=== PATIENT | male | born 1960 | race Caucasian/White ===

== ENCOUNTER 2017-05-20 02:52 | Emergency (ER) | payer MEDICAID ==
[~2017-05-20] VITALS: Ht 170.2 cm; Wt 93.0 kg
[2017-05-20 03:56] LABS: Basophils # (auto) 0.1 uL; Basophils % (auto) 1.1 % (0.0-2.0); Eosinophils # (auto) 0.3 uL; Eosinophils % (auto) 3.5 % (0.0-7.0); Hematocrit 42.9 % (41.0-53.0); Hemoglobin 14.4 g/dL (13.5-17.5); Lymphocytes # (auto) 2.6 uL; Lymphocytes % (auto) 35.1 % (10.0-50.0); Mean Corpuscular Hemoglobin 30.6 pg (28.0-32.0); Mean Corpuscular Hgb Conc. 33.6 g/dL (32.0-36.0); Mean Corpuscular Volume 91.1 fL (80.0-100.0); Monocytes # (auto) 0.6 uL; Monocytes % (auto) 8.5 % (0.0-12.0); Neutrophils # (auto) 3.8 uL; Neutrophils % (auto) 51.8 % (37.0-80.0); Nucleated Red Blood Cells % 0.1 %; Platelet Count (auto) 285 10^3/uL (140-450); Red Blood Cells 4.71 10^6/uL (4.5-5.90); Red Cell Distribution Width 14.2 % (11.8-14.3); White Blood Cell 7.4 10^3/uL (4.4-10.8)
[2017-05-20 04:15] LABS: Alanine Aminotransferase 29 U/L (16-61); Albumin 3.9 g/dL (3.4-5.0); Anion Gap 7 (5-15); Aspartate Aminotransferase 13 U/L (15-37); BUN/Creatinine Ratio 18.5; Blood Urea Nitrogen 15 mg/dL (7-18); Calcium 8.8 mg/dL (8.5-10.1); Carbon Dioxide 25 mmol/L (21-32); Chloride 107 mmol/L (98-107); GFR African American 126 mL/min; GFR Non-African American 104 mL/min; Glucose 126 mg/dL (74-106); Magnesium 2.1 mg/dL (1.6-2.6); Potassium 4.2 mmol/L (3.5-5.1); Sodium 139 mmol/L (136-145)
[2017-05-20 04:20] LABS: Alkaline Phosphatase 75 U/L (45-117); Bilirubin, Total 0.3 mg/dL (0.2-1.0)
[2017-05-20] MEDS ORDERED: ALBUTEROL SULF 2.5 MG/0.5ML(0.5%) NEB SOLN NEB ONE (10:15)
[2017-05-20] MEDS ORDERED: IPRATROPIUM BROM 0.5 MG/2.5ML INH SOL NEB ONE (10:15)
[2017-05-20] MEDS ORDERED: PROMETHAZINE HCL 25 MG/ML 1ML IV ONE (13:00)
[2017-05-20] MEDS ORDERED: KETOROLAC TROMETH 30 MG/ML 1ML VIAL IV ONE (13:00)
[2017-05-20 13:43] VITALS: BP 129/87
== END 2017-05-20 13:39 | disposition home or self-care (01) ==
LOC: ER 02:54
DX: M19.012 Primary osteoarthritis, left shoulder (principal); M19.011 Primary osteoarthritis, right shoulder; G47.00 Insomnia, unspecified; E11.9 Type 2 diabetes mellitus without complications; E78.5 Hyperlipidemia, unspecified; I10 Essential (primary) hypertension; E07.89 Other specified disorders of thyroid; F17.290 Nicotine dependence, other tobacco product, uncomplicated
CPT/HCPCS: 36415; 71045; 80053; 82962; 83735; 83880; 84443; 84484; 85025; 85379; 93005; 94640; 96374; 96375; 99285; J1885; J2550

== ENCOUNTER 2017-06-21 10:26 | Emergency (ER) | payer MEDICAID ==
[~2017-06-21] VITALS: Ht 170.2 cm; Wt 93.4 kg
[2017-06-21 10:37] VITALS: BP 146/82
[2017-06-21] MEDS ORDERED: KETOROLAC TROMETH 60MG/2ML VIAL IM ONE (12:00)
== END 2017-06-21 13:30 | disposition home or self-care (01) ==
LOC: ER 10:26
DX: M54.2 Cervicalgia (principal); M54.5 Low back pain; G89.29 Other chronic pain; M62.830 Muscle spasm of back; E78.5 Hyperlipidemia, unspecified; E11.9 Type 2 diabetes mellitus without complications; I10 Essential (primary) hypertension; F17.200 Nicotine dependence, unspecified, uncomplicated; Z88.0 Allergy status to penicillin
CPT/HCPCS: 93005; 96372; 99283; J1885

== ENCOUNTER 2017-08-06 15:16 | Emergency (ER) | payer MEDICAID ==
[~2017-08-06] VITALS: Ht 170.2 cm; Wt 90.7 kg
[2017-08-06] MEDS ORDERED: SODIUM CHLORIDE 0.9% 1,000 ML IV ONE (17:59)
[2017-08-06] MEDS ORDERED: HYDROmorphone HCL 2 MG/ML VL IV ONE (18:00)
[2017-08-06] MEDS ORDERED: METOCLOPRAMIDE HCL 5MG/ml INJ 2ml VIAL IV ONE (18:00)
[2017-08-06 19:46] LABS: Basophils # (auto) 0 uL; Basophils % (auto) 0.4 % (0.0-2.0); Eosinophils # (auto) 0 uL; Eosinophils % (auto) 0.2 % (0.0-7.0); Hematocrit 42.4 % (41.0-53.0); Hemoglobin 14.1 g/dL (13.5-17.5); Lymphocytes # (auto) 1.4 uL; Lymphocytes % (auto) 12.9 % (10.0-50.0); Mean Corpuscular Hemoglobin 30.2 pg (28.0-32.0); Mean Corpuscular Hgb Conc. 33.2 g/dL (32.0-36.0); Mean Corpuscular Volume 91.1 fL (80.0-100.0); Monocytes # (auto) 0.7 uL; Monocytes % (auto) 6.5 % (0.0-12.0); Neutrophils # (auto) 8.9 uL; Nucleated Red Blood Cells % 0.1 %; Platelet Count (auto) 331 10^3/uL (140-450); Red Blood Cells 4.66 10^6/uL (4.5-5.90); Red Cell Distribution Width 14.5 % (11.8-14.3); White Blood Cell 11.1 10^3/uL (4.4-10.8)
[2017-08-06 19:51] LABS: INR 0.99 (0.9-1.15); Partial Thromboplastin Time 26.9 sec (22.64-33.71); Prothrombin Time 10.8 sec (9.37-12.3)
[2017-08-06 20:13] LABS: Albumin 4.3 g/dL (3.4-5.0); BUN/Creatinine Ratio 20.8; Bilirubin, Total 0.3 mg/dL (0.2-1.0); Calcium 9.6 mg/dL (8.5-10.1); Total Protein 7.8 g/dL (6.4-8.2)
[2017-08-07] MEDS ORDERED: HYDROmorphone HCL 2 MG/ML VL IV ONE (00:15)
[2017-08-07 01:05] VITALS: BP 136/78
== END 2017-08-07 01:08 | disposition short-term general hospital (02) ==
LOC: ER 15:16 → EDBD 15:16 → ER 08-07 01:08
DX: S22.42XA Multiple fractures of ribs, left side, initial encounter for closed fracture (principal); M54.9 Dorsalgia, unspecified; J94.2 Hemothorax; E11.9 Type 2 diabetes mellitus without complications; I10 Essential (primary) hypertension; E78.5 Hyperlipidemia, unspecified; E07.89 Other specified disorders of thyroid; Z88.0 Allergy status to penicillin; V86.55XA Driver of 3- or 4- wheeled all-terrain vehicle (ATV) injured in nontraffic accident, initial encounter; Y93.89 Activity, other specified; Y99.8 Other external cause status; Y92.820 Desert as the place of occurrence of the external cause
CPT/HCPCS: 36415; 71045; 71101; 72128; 73010; 80053; 82962; 85025; 85610; 85730; 94761; 96374; 96375; 96376; 99285; J1170; J2765; J7030